=== PATIENT | female | born 1955 | race African-American/Black ===

== ENCOUNTER 2017-10-29 13:31 | Emergency (ER) | payer OTHER ==
[~2017-10-29] VITALS: Ht 182.9 cm; Wt 70.3 kg
[2017-10-29] MEDS ORDERED: Sodium Chloride 500ML 500 ML IV ONE (13:41)
[2017-10-29] MEDS ORDERED: Solu-MEDROL 125mg Inj IVP ONE (13:45)
[2017-10-29] MEDS ORDERED: MOM30 ML ORAL (13:47)
[2017-10-29] MEDS ORDERED: HYDROCHLOROTHIA25 MG ORAL (13:47)
[2017-10-29] MEDS ORDERED: ZYPREXA7.5 MG ORAL (13:47)
[2017-10-29] MEDS ORDERED: LISINOPRIL10 MG ORAL (13:47)
[2017-10-29] MEDS ORDERED: ACETAMINOPHEN650 M4 ORAL (13:47)
[2017-10-29] MEDS ORDERED: DUONEB 0.5-3(2.53 ML HHN (13:47)
[2017-10-29] MEDS ORDERED: MAGNESIUM OXID400 M1 ORAL (13:47)
[2017-10-29] MEDS ORDERED: ATORVASTATIN CA80 MG ORAL (13:47)
[2017-10-29] MEDS ORDERED: ASPIRIN81 MG ORAL (13:47)
[2017-10-29] MEDS ORDERED: FUROSEMIDE40 MG/5 ML ORAL (13:47)
[2017-10-29] MEDS ORDERED: METOPROLOL TART50 M1 ORAL (13:47)
[2017-10-29] MEDS ORDERED: DEPAKENE250 MG/5 M PO (13:47)
[2017-10-29 13:57] VITALS: BP 128/95
[2017-10-29] MEDS: Albuterol ud Inhalation HHN SCH ×3 (14:07→14:15)
[2017-10-29] MEDS: Ipratropium 0.02% Inh Soln 2.5ml UD HHN SCH ×3 (14:07→14:15)
[2017-10-29 14:21] LABS: BASOPHILS % (AUTO) 0.9 % (0.0-2.0); EOSINOPHILS % (AUTO) 2.9 % (0.0-3.0); HEMATOCRIT 34.4 % (37.0-47.0); HEMOGLOBIN 10.9 G/DL (12.0-16.0); LYMPHOCYTES % (AUTO) 30.9 % (20.0-45.0); MEAN CORPUSCULAR VOLUME 85 FL (80-99); MONOCYTES % (AUTO) 12.9 % (1.0-10.0); NEUTROPHILS % (AUTO) 52.5 % (45.0-75.0); PLATELET COUNT 153 K/UL (150-450); RED BLOOD COUNT 4.03 M/UL (4.20-5.40); WHITE BLOOD COUNT 4.3 K/UL (4.8-10.8)
[2017-10-29 14:28] LABS: ANION GAP 10 mmol/L (5-15); BLOOD UREA NITROGEN 19 mg/dL (7-18); CALCIUM 8.6 MG/DL (8.5-10.1); CARBON DIOXIDE 24 MMOL/L (21-32); CHLORIDE 110 MMOL/L (98-107); CREATININE 0.9 MG/DL (0.55-1.30); POTASSIUM 4.1 MMOL/L (3.5-5.1); SODIUM 143 MMOL/L (136-145)
--- NOTE | 2017-10-29 14:36 | Diagnostic Imaging Report ---
Indication: Shortness of breath Technique: One view of the chest Comparison: none Findings: There is bilateral interstitial congestion. There are bilateral left greater than right pleural effusions. The heart is enlarged. There is a left chest unifocal AICD. Impression: Cardiomegaly with evidence of congestive heart failure and bilateral pleural effusions
[2017-10-29 14:41] LABS: ALANINE AMINOTRANSFERASE 21 U/L (12-78); ALBUMIN 2.7 G/DL (3.4-5.0); ALBUMIN/GLOBULIN RATIO 0.5 (1.0-2.7); ALKALINE PHOSPHATASE 81 U/L (46-116); ASPARTATE AMINO TRANSFERASE 27 U/L (15-37); CKMB 1.1 NG/ML (0.0-3.6); CREATINE KINASE 66 U/L (26-308)
[2017-10-29 15:29] LABS: APPEARANCE,URINE SLIGHTLY CLOUDY; BILIRUBIN, URINE NEGATIVE (NEGATIVE); GLUCOSE, URINE (UA) NEGATIVE (NEGATIVE); KETONES,URINE NEGATIVE (NEGATIVE); LEUKOCYTE ESTERASE ,URINE 1+ (NEGATIVE); NITRITE,URINE NEGATIVE (NEGATIVE); PH,URINE 5 (4.5-8.0); PROTEIN,URINE 2+ (NEGATIVE); UROBILINOGEN,URINE 4 MG/DL (0.0-1.0)
[2017-10-29 15:34] VITALS: BP 147/88
[2017-10-29 15:34] LABS: COLOR,URINE AMBER
[2017-10-29] MEDS ORDERED: Norco 5mg/325mg tab ORAL ONE (16:00)
--- NOTE | 2017-10-29 16:09 | Emergency Room Report ---
History of Present Illness General Chief Complaint: Dyspnea/Respdistress Source: Patient Present Illness HPI 62-year-old female presents ED for evaluation. [facility] with shortness of breath 1 week. History of COPD. Denies chest pain. Notes history of pacemaker. Denies cough. Denies fevers or chills. No other aggravating relieving factors. Denies any other associated symptoms Allergies: Coded Allergies: No Known Allergies (Unverified , 10/29/17) Patient History Pertinent Family History: none Social History: Denies: smoking, alcohol use, drug use Now: No Immunizations: UTD Reviewed Nursing Documentation: PMH: Agreed; PSxH: Agreed Nursing Documentation-PMH Hx Cardiac Problems: Yes - Hypokalemia, hyperlipidemia,HF, cardiomegaly, muscle weakness, Hx Hypertension: Yes - AICD Review of Systems All Other Systems: negative except mentioned in HPI Physical Exam Vital Signs Date Time Temp Pulse Resp B/P (MAP) Pulse Ox O2 Delivery O2 Flow Rate FiO2 10/29/17 13:32 98.2 95 18 135/92 95 Nasal Cannula 2.0 98.2 10/29/17 13:55 28 Sp02 EP Interpretation: reviewed, normal General Appearance: no apparent distress, alert, GCS 15, non-toxic Head: normocephalic, atraumatic Eyes: bilateral eye normal inspection, bilateral eye PERRL ENT: hearing grossly normal, normal pharynx, no angioedema, normal voice Neck: full range of motion, supple/symm/no masses Respiratory: chest non-tender, decreased breath sounds, speaking full sentences , wheezing Cardiovascular #1: regular rate, rhythm, no edema Cardiovascular #2: 2+ carotid (R), 2+ carotid (L), 2+ radial (R), 2+ radial (L) , 2+ dorsalis pedis (R), 2+ dorsalis pedis (L) Gastrointestinal: normal bowel sounds, non tender, soft, non-distended, no guarding, no rebound Rectal: deferred Genitourinary: normal inspection, no CVA tenderness Musculoskeletal: back normal, gait/station normal, normal range of motion, non- tender Neurologic: alert, oriented x3, responsive, motor strength/tone normal, sensory intact, speech normal Psychiatric: judgement/insight normal, memory normal, mood/affect normal, no suicidal/homicidal ideation Reflexes: 3+ bicep (R), 3+ bicep (L), 3+ tricep (R), 3+ tricep (L), 3+ knee (R) , 3+ knee (L) Skin: normal color, no rash, warm/dry, well hydrated Lymphatic: no adenopathy Medical Decision Making Diagnostic Impression: Primary Impression: COPD exacerbation Additional Impression: CHF exacerbation Qualified Codes: I50.9 - Heart failure, unspecified ER Course Hospital Course 62-year-old female presents ED complaining of shortness of breath, Differential diagnoses include: IL/unstable angina, contusion, muscle strain, PTX, rib fracture Clinical course Patient placed on stretcher. on cardiac exercise physiologist. After initial history and physical I ordered labs, EKG, chest x-ray, nebs labs reviewed- no leukocytosis, hemoglobin/hematocrit stable, creatinine elevated, troponins 0.127, BNP greater than 7000 EKG - NSR, no acute ischemic changes interpreted by me Chest x-ray- pulmonary congestion, AICD, cardiomegaly Patient denies chest pain ASA given. Antibiotics given. Lasix given. Because of insurance patient will be transferred I. I feel this is a highly complex case requiring extensive working including EKG/Rhythm strip, Xray/CT/US, Blood/urine lab work, repeat exams while in ED, and administration of strong opiates/narcotics for pain control, admission to hospital or close patient follow up. Diagnosis - CHF exacerbation, COPD exacerbation transferred in serious condition Labs Test 10/29/17 13:59 10/29/17 14:50 White Blood Count 4.3 K/UL (4.8-10.8) Red Blood Count 4.03 M/UL (4.20-5.40) Hemoglobin 10.9 G/DL (12.0-16.0) Hematocrit 34.4 % (37.0-47.0) Mean Corpuscular Volume 85 FL (80-99) Mean Corpuscular Hemoglobin 27.0 PG (27.0-31.0) Mean Corpuscular Hemoglobin Concent 31.7 G/DL (32.0-36.0) Red Cell Distribution Width 16.0 % (11.6-14.8) Platelet Count 153 K/UL (150-450) Mean Platelet Volume 8.3 FL (6.5-10.1) Neutrophils (%) (Auto) 52.5 % (45.0-75.0) Lymphocytes (%) (Auto) 30.9 % (20.0-45.0) Monocytes (%) (Auto) 12.9 % (1.0-10.0) Eosinophils (%) (Auto) 2.9 % (0.0-3.0) Basophils (%) (Auto) 0.9 % (0.0-2.0) Sodium Level 143 MMOL/L (136-145) Potassium Level 4.1 MMOL/L (3.5-5.1) Chloride Level 110 MMOL/L (98-107) Carbon Dioxide Level 24 MMOL/L (21-32) Anion Gap 10 mmol/L (5-15) Blood Urea Nitrogen 19 mg/dL (7-18) Creatinine 0.9 MG/DL (0.55-1.30) Estimat Glomerular Filtration Rate > 60 mL/min (>60) Glucose Level 101 MG/DL (74-106) Lactic Acid Level 1.20 mmol/L (0.4-2.0) Calcium Level 8.6 MG/DL (8.5-10.1) Total Bilirubin 1.0 MG/DL (0.2-1.0) Aspartate Amino Transf (AST/SGOT) 27 U/L (15-37) Alanine Aminotransferase (ALT/SGPT) 21 U/L (12-78) Alkaline Phosphatase 81 U/L (46-116) Total Creatine Kinase 66 U/L (26-308) Creatine Kinase MB 1.1 NG/ML (0.0-3.6) Creatine Kinase MB Relative Index 1.6 Troponin I 0.127 ng/mL (0.000-0.056) Pro-B-Type Natriuretic Peptide 7663 pg/mL (0-125) Total Protein 7.8 G/DL (6.4-8.2) Albumin 2.7 G/DL (3.4-5.0) Globulin 5.1 g/dL Albumin/Globulin Ratio 0.5 (1.0-2.7) Urine Color [place] Urine Appearance Slightly cloudy Urine pH 5 (4.5-8.0) Urine Specific [place] 1.025 (1.005-1.035) Urine Protein 2+ (NEGATIVE) Urine Glucose (UA) Negative (NEGATIVE) Urine Ketones Negative (NEGATIVE) Urine Occult Blood Negative (NEGATIVE) Urine Nitrite Negative (NEGATIVE) Urine Bilirubin Negative (NEGATIVE) Urine Ictotest Negative (NEGATIVE) Urine Urobilinogen 4 MG/DL (0.0-1.0) Urine Leukocyte Esterase 1+ (NEGATIVE) Urine RBC 0 /HPF (0 - 2) Urine WBC 5-10 /HPF (0 - 2) Urine Squamous Epithelial Cells Moderate /LPF (NONE/OCC) Urine Bacteria Few /HPF (NONE) Urine Mucus Few /LPF (NONE/OCC) EKG Diagnostic Results Rate: normal Rhythm: NSR ST Segments: no acute changes ASA given to the pt in ED: Yes Rhythm Strip Diag. Results EP Interpretation: yes Rhythm: NSR, no PVC's, no ectopy Chest X-Ray Diagnostic Results Chest X-Ray Diagnostic Results : Chest X-Ray Ordered: Yes # of Views/Limited/Complete: 1 View Indication: Shortness of Breath EP Interpretation: Yes Interpretation: no pneumothorax, other - cardiomegaly. AICD. bilateral effusion Impression: Other - chf Electronically Signed by: Electronically signed by Danny Torres MD Last Vital Signs Date Time Temp Pulse Resp B/P (MAP) Pulse Ox O2 Delivery O2 Flow Rate FiO2 10/29/17 15:34 97.3 77 15 147/88 93 Room Air 97.3 10/29/17 14:35 2.0 28 Status: improved Disposition: [facility] Condition: Serious Referrals: Minh Villarreal MD (PCP) Danny Torres MD Oct 29, 2017 16:09
[2017-10-29 17:46] VITALS: BP 149/95
[2017-10-29 17:48] VITALS: BP 149/95
== END 2017-10-29 17:50 | disposition short-term general hospital (02) ==
LOC: EDBD 13:31 → EMR 13:50
DX: J44.1 Chronic obstructive pulmonary disease with (acute) exacerbation (principal); I50.9 Heart failure, unspecified; I51.7 Cardiomegaly; I10 Essential (primary) hypertension; E87.6 Hypokalemia; E78.5 Hyperlipidemia, unspecified; Z95.810 Presence of automatic (implantable) cardiac defibrillator
CPT/HCPCS: 36415; 71045; 80053; 81003; 82550; 82553; 83605; 83880; 84484; 85025; 87040; 93005; 94640; 94664; 96361; 96365; 96375; 99284; J1940; J1956; J2930; J7040